=== PATIENT | male | born 1935 | race Caucasian/White ===

== ENCOUNTER 2024-05-22 10:50 | Emergency (ER) | payer OTHER ==
[~2024-05-22] VITALS: Ht 175.3 cm; Wt 71.2 kg
[2024-05-22] MEDS ORDERED: CEFTRIAXONE /D5W 50ML IVPB **ER PYXIS IV ONE (11:07)
[2024-05-22 11:23] LABS: BASOPHILS % (AUTO) 0.5 % (0.0-2.0); EOSINOPHILS % (AUTO) 0.6 % (0.0-7.0); HEMATOCRIT 37.6 % (36.7-47.1); HEMOGLOBIN 12.9 g/dL (12.5-16.3); LYMPHOCYTES # (AUTO) 0.8 K/uL (0.8-4.8); LYMPHOCYTES % (AUTO) 10.7 % (20.5-51.5); MEAN CORPUSCULAR HEMOGLOBIN 31.5 uug (23.8-33.4); MEAN CORPUSCULAR HGB CONC 34 g/dL (32.5-36.3); MEAN CORPUSCULAR VOLUME 91.8 fL (73.0-96.2); NEUTROPHILS # (AUTO) 5.6 K/uL (1.8-8.9); NEUTROPHILS % (AUTO) 75.2 % (38.5-71.5); PLATELET COUNT (AUTO) 113 K/uL (152-348); RED BLOOD CELL COUNT(AUTO) 4.09 MIL/uL (4.06-5.63); RED CELL DISTRIBUTION WIDTH 14.1 % (12.1-16.2); WHITE BLOOD COUNT (AUTO) 7.4 K/uL (3.6-10.2)
[2024-05-22] MEDS: CEFTRIAXONE 1 G in IV DEXTROSE 5% 50 ML IV ONE (11:27)
[2024-05-22] MEDS: IV NORMAL SALINE 1000 ML BAG IV ONE ×2 (11:27→17:02)
[2024-05-22 11:35] LABS: CALCIUM 9.3 mg/dL (8.5-10.1); CARBON DIOXIDE 23 mmol/L (21-32); CHLORIDE 102 mmol/L (98-107); CREATININE 1.5 mg/dL (0.6-1.3); GLUCOSE 116 mg/dL (74-106); SODIUM SERUM 137 mmol/L (136-145); UREA NITROGEN, BLOOD 29 mg/dL (7-18)
[2024-05-22 11:47] LABS: ALANINE AMINOTRANSFERASE 23 U/L (16-63); ALBUMIN 3.3 g/dL (3.4-5.0); ALKALINE PHOSPHATASE 84 U/L (50-136); ASPARTATE AMINOTRANSFERASE 23 U/L (15-37); BILIRUBIN,DIRECT 0.2 mg/dL (0.0-0.2); BILIRUBIN,TOTAL 0.9 mg/dL (0.2-1.0); NT-PRO BNP 250 pg/mL (0-125); TOTAL PROTEIN, SERUM 6.6 g/dL (6.4-8.2)
[2024-05-22] MEDS ORDERED: VANCOMYCIN IV 200 ML ONE (11:47)
[2024-05-22] MEDS ORDERED: IV NORMAL SALINE 250 ML IV ONE (11:50)
[2024-05-22] MEDS ORDERED: IOHEXOL 300MG/ML 100 ML INFUS..BTL ONE (11:50)
[2024-05-22] MEDS ORDERED: SWABABLE VALVE TRANSFER SET EA MC ONE (11:50)
[2024-05-22 11:56] LABS: LACTIC ACID 2.2 mmol/L (0.4-2.0)
[2024-05-22 12:02] LABS: DIFFERENTIAL COMMENT 1
[2024-05-22] MEDS: VANCOMYCIN IV 1,000 MG in IV DEXTROSE 5% 250 ML IV ONE (12:30)
[2024-05-22 14:58] VITALS: O2SAT 100
[2024-05-22 16:18] LABS: *BILIRUBIN,URIN NEGATIVE (NEGATIVE); *BLOOD, URINE 2+ (NEGATIVE); *CLARITY,URINE CLEAR (CLEAR); *COLOR,URINE YELLOW (YELLOW); *KETONES,URINE NEGATIVE (NEGATIVE); *PROTEIN,URINE NEGATIVE (NEGATIVE); *UROBILINOGEN,URINE 0.2 E.U./dl (NORMAL); LEUKOCYTE ESTERASE ,URINE NEGATIVE (NEGATIVE); NITRITE, URINE NEGATIVE (NEGATIVE); UGLUCOSE NEGATIVE (NEGATIVE)
[2024-05-22 16:46] LABS: BACTERIA,URINE FEW /HPF (NONE SEEN); SQUAMOUS EPITHELIAL CELL,UR FEW /HPF (NONE SEEN); WBC,URINE 0-3 /HPF (0-3)
== END 2024-05-22 18:13 | disposition short-term general hospital (02) ==
LOC: ER 10:50
DX: A41.9 Sepsis, unspecified organism (principal); R55 Syncope and collapse; K11.21 Acute sialoadenitis; M54.2 Cervicalgia; E78.5 Hyperlipidemia, unspecified; Z88.0 Allergy status to penicillin
CPT/HCPCS: 99291; 70450; 96365; 71045; 96367; 96361; 80076; 80048; 81001; 83880; 85025; 84145; 85730; 87040; 87086; 84484 ×2; 36415; 70491; 93005; 83605 ×2; J0696; Q9967; J3370; J7040 ×2; A4606; A4663